=== PATIENT | male | born 1945 | race Caucasian/White ===

== ENCOUNTER 2017-12-30 14:30 | Outpatient (CLI) | payer MEDICARE, SELFPAY | END 2017-12-30 14:31 | PROVIDERS: PCP Family Medicine; Visit Provider Internal Medicine Cardiovascular Disease | DX: I25.10 Atherosclerotic heart disease of native coronary artery without angina pectoris (principal); Z95.818 Presence of other cardiac implants and grafts; E66.01 Morbid (severe) obesity due to excess calories; E11.22 Type 2 diabetes mellitus with diabetic chronic kidney disease; N18.9 Chronic kidney disease, unspecified; I13.10 Hypertensive heart and chronic kidney disease without heart failure, with stage 1 through stage 4 chronic kidney disease, or unspecified chronic kidney disease; J44.9 Chronic obstructive pulmonary disease, unspecified; Z87.891 Personal history of nicotine dependence | CPT/HCPCS: 99213 ==

== ENCOUNTER 2018-02-19 17:14 | Emergency (ER) | payer MEDICARE, SELFPAY ==
[2018-02-19 17:20] VITALS: BP 141/73; PULSE 43; RESP 18; TEMP 36.7; O2SAT 98
--- NOTE | 2018-02-19 17:36 | DI.CT_ITS ---
SYMPTOM/DIAGNOSIS: FALL, ON ELEQUIS CRANIAL CT: 02/[address] was performed. There is reportedly history of trauma. No calvarial fracture identified. Paranasal sinuses and mastoid air cells are well aerated as visualized. The orbital and temporal bone structures appear intact. There is marked generalized cerebral atrophy There is slight intraparenchymal vs subarachnoid hemorrhage involving the high left parietal lobe. There is tiny left frontal subdural hematoma and probable tiny subdural hematoma associated with the falx anteriorly. No additional intracranial hemorrhage seen. No midline shift or mass effect. CONCLUSION: Small left frontal and falcine subdural hematomas with minimal presumed intraparenchymal/contusional hemorrhage involving high left parietal lobe peripherally. CERVICAL SPINE CT; 02/19 CT examination of the cervical spine was performed utilizing multi-slice imaging and multi-planar reconstruction. Images obtained through the lung apices are unremarkable. Tracheolaryngeal structures appear intact. No evidence of acute cervical fracture However, I would note that there is significant motion artifact on these images and nondisplaced fracture might not be visible. No facet dislocation seen. CONCLUSION: Technically limited study. No gross fracture identified.
--- NOTE | 2018-02-19 17:36 | DI.CT_ITS ---
SYMPTOM/DIAGNOSIS: LOWER MIDDLE ABD PAIN, CONCERN FOR HERNIA, SOB CHEST, ABDOMEN AND PELVIS CT: 02/19 CT examination of the chest, abdomen and pelvis was performed without contrast administration due to history of prior contrast reaction.: No fracture identified in the region surveyed. Lungs are clear and well expanded. Tracheobronchial tree appears intact. There is mild cardiomegaly. No gross mediastinal hematoma. No free intraperitoneal air. Liver and spleen unremarkable by noncontrast criteria. Previous cholecystectomy noted. No biliary dilatation. The pancreas is unremarkable. Large presumed left renal cyst noted. Otherwise, adrenals and kidneys are unremarkable. No abdominal aortic aneurysm. No free fluid in the pelvis or retroperitoneum. No bowel obstruction or bowel injury seen. CONCLUSION: No evidence of acute injury.
--- NOTE | 2018-02-19 17:39 | W.ED.GENAD ---
Discharge Plan Disposition Patient Disposition: [facility] Condition: Stable Discharge Details Chief Complaint: SOB Clinical Impression: Third degree AV block, Intracranial hemorrhage, Syncope Primary Care Provider: Juventino Lyons ED Provider: Jorge Milian Home Meds and New Rx's Prescriptions: No Action cetirizine [Zyrtec] 10 MG tablet 10 mg PO PRN RF: 0 nitroglycerin [Nitrostat] 0.4 MG tablet, sublingual 0.4 mg Sublingual ONCE RF: 0 docusate sodium [Colace] 100 MG capsule 100 mg PO DAILY RF: 0 mometasone [Nasonex] 17 GM spray,non-aerosol 2 spry NS DAILY RF: 0 omeprazole [Prilosec] 20 MG capsule,delayed release(DR/EC) 40 mg PO DAILY RF: 0 oxycodone 30 MG tablet 30 mg PO PRN PRNRF: 0 ropinirole [Requip] 5 MG tablet 5 mg PO DAILY RF: 0 dextrin [Fiber (dextrin)] 350 GM powder 350 gm PO PRN RF: 0 ipratropium-albuterol [Combivent Respimat] 4 GM mist 1 puff Inhalation QID RF: 0 oxycodone [OxyContin] 40 MG tablet,oral only,ext.rel.12 hr 40 mg PO Q12H PRN RF: 0 aspirin [Aspirin Low-Strength] 81 MG tablet,chewable 81 mg PO HS RF: 0 metoprolol succinate [Toprol XL] 50 MG tablet extended release 24 hr 2 tab-cap PO DAILY Qty: 60 RF: 0 furosemide 20 MG tablet 20 mg PO BID Qty: 45 RF: 0 potassium chloride [Klor-Con M10] 10 MEQ tablet,ER particles/crystals 10 meq PO BID Qty: 60 RF: 0 apixaban [Eliquis] 5 MG tablet 5 mg PO BID Qty: 60 RF: 0 atorvastatin 80 mg Tablet 80 mg PO HS RF: 0 isosorbide mononitrate 60 mg Tablet Extended Release 24 Hr 60 mg PO DAILY RF: 0 hydroxyzine HCl 25 mg Tablet 25 mg PO TID RF: 0 Medical Decision Making This is a 72-year-old male with a past medical history of atrial fibrillation, congestive heart failure, coronary artery disease and stenting, abdominal hernia surgery, diabetes mellitus. He takes Eliquis for his A. fib. He presents today for evaluation of lightheadedness, shortness of breath and syncope. 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 Today when he woke up he became extremely lightheaded, and felt short of breath. He immediately syncopized and hit his head on the floor. He woke up not long afterwards throughout the rest of the day he continued to feel very short of breath and winded. He felt near syncopal whenever he would try to get up or move around. He denied any chest pain or arm pain. He denies any history of blood clots. Physical exam demonstrates notable bradycardia, however the patient is neurovascularly intact, and so there is no signs of confusion or obtundation. Blood pressure is stable at this time. Bedside rhythm strip demonstrates concerning evidence of third-degree heart block, which was confirmed with EKG. Patient's laboratory workup demonstrates no significant electrolyte abnormality. CT scan of her review shows no evidence of acute bleed or severe dislocation, pneumothorax, or atrial fracture. We are waiting on formal virtual radiology reads at this time. Because of the patient's third-degree heart block, place of pads were immediately placed. We did contact [facility] cardiology and I discussed the case with Dr. Leiva, he agrees with the assessment and plan. We discussed the risks and benefits of transvenous pacing here in the ED, based on the current clinical and provider scenario, as well as the patient's risk factors of Eliquis, since his blood pressure is stable, his neurovascular exam is otherwise normal, he shows no signs of hemodynamic compromise at this time I do feel that utilizing the pacer pads instead of immediate transvenous pacer is reasonable. I did discuss this with the material analyst and he agrees. They have requested that the patient be transferred via dart. Patient will be admitted to [facility] under . I have extensively reviewed the treatment plan with the patient. I have addressed all patient concerns at this time. I have also discussed the plan with the admitting physician and they agree with the current assessment and plan and have agreed to assume responsibility for the patient. All parties demonstrate verbal understanding and agreement with our assessment and plan at this time. EKG 17: 23 Rate 36, QTc 384, QRS 138, third-degree heart block. No ST elevations or depressions. No significant T wave inversions. CT scan results have returned per virtual radiology. In the form of a report. Per virtual radiology read there does appear to be 2 small intracranial bleeds. We did immediately contact [facility] and discussed the case with Dr. Melchor the neurosurgeon, as well as the material analyst Dr. Leiva again. We discussed the risks and benefits of reversal or attempted reversal for his Eliquis since there is no true reversal. Was recommended that we give 10 mg of vitamin K, as well as PCC for reversal, we will hold any FFP secondary to the patient's history of congestive heart failure and concern for volume overload. Patient will be given 2500 units of PCC which was recommended by our pharmacist. We will give the 10 mg of IV vitamin K. After [facility] was contacted radiology did call us and inform us of the findings. Literature recommendation was as follows for reversal of Elliquis: In a retrospective series of 84 individuals who had active, major bleeding (mostly intracranial hemorrhage) associated with a direct factor Xa inhibitor and were treated with a fixed dose of a 4-factor PCC (1500 or 2000 units for body weight <65 kg or >65 kg, respectively; equivalent to approximately 25 units/kg), hemostasis was judged to be effective in 58 (69 percent) [71]. I have extensively reviewed the treatment plan with the patient. I have addressed all patient concerns at this time. I have also discussed the plan with the admitting physician and they agree with the current assessment and plan and have agreed to assume responsibility for the patient. All parties demonstrate verbal understanding and agreement with our assessment and plan at this time. Impression: 1. Acute areas of hemorrhage involving a subdural hematoma of the fall, small left frontal subdural hematoma and left parietal sulcal hemorrhage. 2. Senescent changes noted. Impression: Spondylosis without stenosis. No evidence for acute posttraumatic abnormality. Chest abdomen abdomen and pelvis impression: No evidence for acute posttraumatic abnormality. HPI General Date/Time Provider Initiated Documentation: 02/19/18 17:36. HPI Narrative: This is a 72-year-old male with a past medical history of diabetes, coronary artery disease, cardiac stents, A. 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 Patient states that yesterday he was chain sawing and had no problems or difficulty with this, however today when he woke up he felt extremely lightheaded, he passed out as he was getting up out of bed and did hit his head. He had complete loss of consciousness. Throughout the day he states that he has been extremely short of breath, fatigued, and does not feel his normal self. He has been taking his medications as directed. He denies missing any recent doses. He denies any chest pain, arm pain or neck pain. He denies any vision changes or headache. He also admits to some mild lower abdominal pain. He states that he feels that something gave out in his lower abdomen while zach crespo. He thinks it might be 1 of his hernias. Patient denies any other complaints at this time. Past surgical history is positive for previous surgeries, cardiac stenting. He denies any IV or illicit drug use. He denies any pertinent family history. Related Data Home Medications Medication Instructions Recorded Confirmed cetirizine [Zyrtec] 10 mg PO PRN 01/31/15 02/19/18 dextrin [Fiber (dextrin)] 350 gm PO PRN 01/31/15 02/19/18 docusate sodium [Colace] 100 mg PO DAILY tab-cap 01/31/15 02/19/18 ipratropium-albuterol [Combivent 1 puff INHALATION QID inhaler 01/31/15 02/19/18 Respimat] mometasone [Nasonex] 2 spry NS DAILY spray 01/31/15 02/19/18 nitroglycerin [Nitrostat] 0.4 mg SUBLINGUAL ONCE tab-cap 01/31/15 02/19/18 omeprazole [Prilosec] 40 mg PO DAILY tab-cap 01/31/15 02/19/18 oxycodone 30 mg PO PRN PRN 01/31/15 02/19/18 oxycodone [OxyContin] 40 mg PO Q12H PRN tab-cap 01/31/15 02/19/18 ropinirole [Requip] 5 mg PO DAILY 01/31/15 02/19/18 apixaban [Eliquis] 5 mg PO BID #60 tab 06/07/15 02/19/18 aspirin [Aspirin Low-Strength] 81 mg PO HS tab-cap 06/20/15 02/19/18 furosemide 20 mg PO BID #45 tab 12/11/16 02/19/18 metoprolol succinate [Toprol XL] 2 tab-cap PO DAILY #60 tab-cap 12/11/16 02/19/18 potassium chloride [Klor-Con M10] 10 meq PO BID #60 tabcr 12/11/16 02/19/18 atorvastatin 80 mg PO HS 02/19/18 02/19/18 hydroxyzine HCl 25 mg PO TID 02/19/18 02/19/18 isosorbide mononitrate 60 mg PO DAILY 02/19/18 02/19/18 Previous Rx's Medication Instructions Recorded apixaban [Eliquis] 5 mg PO BID #60 tab 06/07/15 Allergies Allergy/AdvReac Type Severity Reaction Status Date / Time celecoxib [From Celebrex] Allergy Unverified 02/19/18 17:28 gabapentin Allergy Unverified 02/19/18 17:29 Iodinated Contrast- Oral and Allergy Unverified 02/19/18 17:28 IV Dye [Iodinated Contrast Media - IV Dye] iodine Allergy Unverified 02/19/18 17:28 pollen extracts Allergy Unverified 02/19/18 17:28 sulfamethoxazole Allergy Unverified 02/19/18 17:28 General Stated Complaint: SOB HASMUKH: 2 Review of Systems Review of Systems All systems reviewed & are unremarkable except as noted in HPI and below PFSH Social History Smoking/Tobacco Use Status: Former Tobacco Use Exam Narrative Exam Narrative: 1.Const: Well-nourished, Well-developed, appearing stated age 2.Eyes: PERRL, no conjunctival injection, and symmetrical lids. 3.ENT: Atraumatic external nose and ears. Moist MM. Neck: Symmetric, trachea midline, No thyromegaly. There is no evidence of raccoon eyes, sheppard sign, CSF rhinorrhea, mastoid tenderness, cranial crepitus, hemotympanum, exophthalmos, or hyphema. Patient demonstrates intact dentition with no signs of tooth avulsion or fracture, no signs of jaw deformity, no evidence of a LeFort's fracture, with an intact palate, nose and orbital region. There is no evidence of a nasal septal hematoma. No proptosis. Jaw closes symmetrically. Airway is clear. 4.CVS: +S1/S2, notable bradycardia, no murmurs or gallops. Peripheral pulses 2+ and equal in all extremities. Brisk capillary refill in all extremities. 5.RESP: Unlabored respiratory effort. Clear to auscultation bilaterally. No wheezes rales or rhonchi 6.GI: Soft, obese, multiple previous scars from previous surgeries. Some fullness in the infraumbilical region, no guarding or rebound. No pain at McBurney's point. Negative Mcallister sign. 7.MSK: Normocephalic/Atraumatic, Extremities w/o deformity or ttp No cyanosis or clubbing, Normal movement of all extremities. +2 pitting edema bilaterally. Chronic skin breakdown on his anterior shins bilaterally, no evidence of ulceration. 8.Skin: Warm, please see musculoskeletal 9.Neuro: crystal calibrator II-XII grossly intact. Sensation grossly intact, no focal neurologic deficits. All 6 cardinal planes of vision or fully intact. No evidence of horizontal or vertical nystagmus. The patient demonstrated a normal [id number], good dexterity. There was no evidence of dysdiadochokinesia. Patient was able to ambulate without difficulty. There was no wide-based gait. Romberg, and [id number] are both normal on testing. Sensation was intact bilaterally as well as muscle strength bilaterally for all extremities. Patient was able to verbalize butter cup with no slurring, or miss pronunciation. 10.Psych: (AAO) x3. Appropriate mood and affect Course Vital Signs Temperature 36.7 C 02/19/18 17:20 Pulse 43 L 02/19/18 17:20 Respiratory Rate 18 02/19/18 17:20 Blood Pressure 141/73 H 02/19/18 17:20 Pulse Oximetry 98 02/19/18 17:20 Temperature 36.7 C 02/19/18 17:20 Temperature Source Skin 02/19/18 17:20 Pulse 43 L 02/19/18 17:20 Respiratory Rate 18 02/19/18 17:20 Respiratory Effort 02/19/18 17:23 Blood Pressure 141/73 H 02/19/18 17:20 Pulse Oximetry 98 02/19/18 17:20 Oxygen Delivery Method Room Air 02/19/18 17:20 Oxygen Flow Rate 0 02/19/18 17:20
[2018-02-19 17:48] LABS: Abs Immature Grans 0.03 k/cumm (0.0-0.09); Absolute Basophil Count 0.02 k/cumm (0.0-0.2); Absolute Eosinophil Count 0.04 k/cumm (0.0-0.7); Absolute Lymphocyte Count 2.17 k/cumm (1.2-3.4); Absolute Monocyte Count 0.61 k/cumm (0.11-0.7); Basophils % 0.2; Eosinophils % 0.4; HCT 37.4 % (40.0-50.0); HGB 12.1 g/dL (13.5-17.5); Immature Grans % 0.3; Lymphocytes % 22.7; Mean Corp. HGB Concentration 32.4 g/dL (32.0-36.0); Mean Corpuscular Hemoglobin 31.3 pg (27.0-33.0); Mean Corpuscular Volume 96.6 fL (80-95); Mean Platelet Volume 10.3 fL (8.0-11.0); Monocytes % 6.4; Platelet Count 168 x1000/uL (130-400); RBC 3.87 m/cumm (4.50-6.00); RBC Distribution Width 14.4 % (11.8-14.1); White Blood Cell Count 9.57 k/cumm (4.4-10.8)
[2018-02-19 18:00] LABS: INR 1.2 (1.0-3.5); PTT Activated 28.6 sec (21.0-31.4); Prothrombin Time 12.1 sec (9.3-10.8)
[2018-02-19 18:08] LABS: ALT 25 U/L (12-78); AST 42 U/L (15-37); Albumin 3.5 g/dL (3.4-5.0); Alkaline Phosphatase 93 U/L (46-116); Anion Gap 9.1 mmol/L (3-11); BUN 18 mg/dL (7-18); Bilirubin, Total 1.2 mg/dL (0.2-1.0); CO2 30.9 mmol/L (21.0-32.0); CREATININE 1.36 mg/dL (0.70-1.30); Chloride 102 mmol/L (98-107); Estimated GFR 51.51 (mL/min/1.73m2); Glucose 146 mg/dL (70-100); Magnesium 1.8 mg/dL (1.8-2.4); Potassium 3.7 mmol/L (3.5-5.1); Sodium 142 mmol/L (136-145); TSH 2.73 uIU/mL (0.358-3.74); Total Protein 7.5 g/dL (6.4-8.2)
[2018-02-19 18:13] LABS: Troponin I < 0.02 ng/mL (0.00-0.06)
[2018-02-19 18:42] VITALS: RESP 22
--- NOTE | 2018-02-19 18:54 | DI.VRAD_ITS ---
EXAM: CT Head Without Intravenous Contrast CLINICAL HISTORY: 72 years old, male; Injury or trauma; Fall; Initial encounter; Blunt trauma (contusions or hematomas); Patient HX: Fall, on elequis TECHNIQUE: Axial computed tomography images of the head/brain without intravenous contrast. Coronal and sagittal reformatted images were created and reviewed. COMPARISON: No relevant prior studies available. FINDINGS: Brain: Cerebral volume loss noted. There is some increased thickening and increased density in the falx fairly diffusely. It measures no greater than 3 mm. There appears to be a tiny left frontal convexity subdural hematoma series 5 images 32-39. There is minimal extends involving the left tentorium. There is acute sulcal hemorrhage in the left parietal lobe near the convexity. Scattered areas of decreased attenuation in the deep periventricular white matter consistent with small vessel ischemic change. Ventricles: Unremarkable. No ventriculomegaly. Bones/joints: Unremarkable. No acute fracture. Soft tissues: Unremarkable. Sinuses: Unremarkable as visualized. No acute sinusitis. Mastoid air cells: Unremarkable as visualized. No mastoid effusion. IMPRESSION: 1. Acute areas of hemorrhage involving a subdural hematoma of the fall, small left frontal subdural hematoma and left parietal sulcal hemorrhage. 2. Senescent changes noted. EXAM: CT Cervical Spine Without Intravenous Contrast EXAM DATE/TIME: 02/19/2018 5:45 PM CLINICAL HISTORY: 72 years old, male; Injury or trauma; Fall; Initial encounter; Blunt trauma (contusions or hematomas); Patient HX: Fall, on elequis TECHNIQUE: Axial computed tomography images of the cervical spine without intravenous contrast. Coronal and sagittal reformatted images were created and reviewed. COMPARISON: No relevant prior studies available. FINDINGS: Vertebrae: Cervical spondylosis without stenosis. No acute fracture. Discs/spinal canal/neural foramina: No acute findings. No spinal canal stenosis. Soft tissues: Unremarkable. Vasculature: Bilateral calcified carotid plaque. Lung apices: Unremarkable as visualized. IMPRESSION: Spondylosis without stenosis. No evidence for acute posttraumatic abnormality. Preliminary interpretation is based on receipt of [id number] image(s). A final report will be issued subsequently. We appreciate the opportunity to be involved in this patient's care. Dictated and Authenticated by: Jenny Mccain MD. Ordering:ERNST DAVIDSON MD
--- NOTE | 2018-02-19 19:00 | DI.VRAD_ITS ---
EXAM: CT Chest Without Intravenous Contrast EXAM DATE/TIME: 02/19/2018 5:48 PM CLINICAL HISTORY: 72 years old, male; Injury or trauma; Fall; Initial encounter; Blunt; Generalized; Blunt trauma (contusions or hematomas); Patient HX: Fall, on elequis TECHNIQUE: Axial computed tomography images of the chest without intravenous contrast. Coronal and sagittal reformatted images were created and reviewed. COMPARISON: No relevant prior studies available. FINDINGS: Lungs: Normal. No consolidation. No masses. Pleural space: Normal. No pneumothorax. No pleural effusion. Heart: Mild cardiomegaly. Coronary artery calcifications identified. Aorta: Moderate atherosclerotic change present in the vasculature. Lymph nodes: Mild mediastinal adenopathy. Bones/joints: Moderate thoracic spondylosis. Soft tissues: Unremarkable. Other findings: Respiratory motion noted. IMPRESSION: No evidence for acute posttraumatic abnormality. EXAM: CT Abdomen and Pelvis Without Intravenous Contrast EXAM DATE/TIME: 02/19/2018 5:48 PM CLINICAL HISTORY: 72 years old, male; Injury or trauma; Fall; Initial encounter; Blunt; Generalized; Blunt trauma (contusions or hematomas); Patient HX: Fall, on elequis TECHNIQUE: Axial computed tomography images of the abdomen and pelvis without intravenous contrast. Coronal and sagittal reformatted images were created and reviewed. COMPARISON: No relevant prior studies available. FINDINGS: Lower thorax: No acute findings. ABDOMEN: Liver: Normal. No mass. Gallbladder and bile ducts: Status post cholecystectomy. Pancreas: Mild fatty atrophy of the pancreas. Spleen: Normal. No splenomegaly. Adrenals: Normal. No mass. Kidneys and ureters: Left renal cysts. Stomach and bowel: Normal. No obstruction. No mucosal thickening. Appendix: No evidence of appendicitis. PELVIS: Bladder: Bladder not well distended. Reproductive: Unremarkable as visualized. ABDOMEN and PELVIS: Intraperitoneal space: Normal. No free air. No significant fluid collection. Bones/joints: Postsurgical change lower lumbar spine with moderate spondylosis. Soft tissues: Due to patient body habitus the entire field of view is not included on the exam. Vasculature: Moderate atherosclerotic change present in the vasculature. Lymph nodes: Normal. No enlarged lymph nodes. IMPRESSION: No evidence for acute posttraumatic abnormality. COMMENT: Preliminary interpretation is based on receipt of 411 image(s). A final report will be issued subsequently. We appreciate the opportunity to be involved in this patient's care. Dictated and Authenticated by: Jenny Mccain MD. Ordering:ERNST DAVIDSON MD
[2018-02-19] MEDS: Phytonadione 10 MG/ML AMP (19:32)
== END 2018-02-19 19:31 | disposition short-term general hospital (02) ==
PROVIDERS: Emergency Provider Student in an Organized Health Care Education/Training Program; PCP Family Medicine
DX: I44.2 Atrioventricular block, complete (principal); S06.309A Unspecified focal traumatic brain injury with loss of consciousness of unspecified duration, initial encounter; W18.39XA Other fall on same level, initial encounter; Z79.01 Long term (current) use of anticoagulants; E11.9 Type 2 diabetes mellitus without complications
CPT/HCPCS: 36415; 71250; 80053; 93005; 96365; 99285; 70450; 72125; 74176; 83735; 84443; 84484; 85025; 85610; 85730; 93010; J3430